=== PATIENT | male | born 1990 | race Caucasian/White ===

== ENCOUNTER 2017-07-08 16:23 | Emergency (ER) | payer OTHER ==
[~2017-07-08] VITALS: Ht 180.3 cm; Wt 70.3 kg
[2017-07-08] MEDS ORDERED: ACETAMINOPHEN-1 EAC1 PO (16:58)
[2017-07-08] MEDS ORDERED: AMOXICILLIN 50500 MG PO (16:58)
[2017-07-08] MEDS ORDERED: IBUPROFEN 800800 M1 PO (16:58)
[2017-07-08 17:20] VITALS: BP 106/72
== END 2017-07-08 17:20 | disposition home or self-care (01) ==
LOC: M.ERS 16:23
DX: K08.89 Other specified disorders of teeth and supporting structures (principal); J45.909 Unspecified asthma, uncomplicated; F31.9 Bipolar disorder, unspecified; F90.9 Attention-deficit hyperactivity disorder, unspecified type

== ENCOUNTER 2017-08-24 15:44 | Emergency (ER) | payer OTHER ==
[~2017-08-24] VITALS: Ht 182.9 cm; Wt 68.0 kg
[~2017-08-24 15:44] MED LIST: ACETAMINOPHEN-1 EAC1 PO; AMOXICILLIN 50500 MG PO; IBUPROFEN 800800 M1 PO
[2017-08-24 15:59] VITALS: BP 122/82
[2017-08-24 16:53] LABS: ABSOLUTE EOSINOPHILS 0.3 thou/uL (0.0-0.7); ABSOLUTE LYMPHOCYTES 2.3 thou/uL (0.8-5.3); ABSOLUTE MONOCYTES 0.7 thou/uL (0.0-1.2); ABSOLUTE NEUTROPHILS 7.8 thou/uL (1.6-8.1); BASOPHILS 0.4 %; EOSINOPHILS 2.5 %; HEMATOCRIT 42.8 % (42.0-52.0); HEMOGLOBIN 14.7 gm/dL (14.0-18.0); LYMPHOCYTES 20.5 %; MCH 31.1 pg (26.0-34.0); MCHC 34.5 g/dL (28.0-37.0); MCV 90.1 fL (80.0-100.0); MONOCYTES 6.4 %; MPV 7.5 fl. (7.2-11.1); NUCLEATED RBCS 0 /100WBC; PLATELET COUNT* 222 thou/uL (150-400); POLYS 70.2 %; RBC 4.75 mil/uL (4.50-6.00); WBC 11.1 thou/uL (4.0-11.0)
[2017-08-24 17:00] LABS: CALCIUM 9.4 mg/dL (8.5-10.1); CREATININE 0.9 mg/dL (0.6-1.3); POTASSIUM 3.9 mmol/L (3.5-5.1)
[2017-08-24 17:05] LABS: ALBUMIN 3.6 g/dL (3.4-5.0); TOTAL BILIRUBIN 0.3 mg/dL (<0.1-1.0); TOTAL PROTEIN 7.1 g/dL (6.4-8.2)
[2017-08-24 17:11] LABS: APTT 28.7 Seconds (25.0-31.3)
[2017-08-24] MEDS ORDERED: CLEOCIN HCL150 M1 PO (17:12)
[2017-08-24 18:03] VITALS: BP 123/69
[2017-08-24 18:11] LABS: ESR (SEDRATE) 20 mm/hr (0-15)
== END 2017-08-24 18:04 | disposition left against medical advice (07) ==
LOC: M.ERS 15:44 → M.TBA-ER 16:32 → M.ERS 18:04
PROVIDERS: Nurse Practitioner Family
DX: L03.114 Cellulitis of left upper limb (principal); J45.909 Unspecified asthma, uncomplicated; F90.9 Attention-deficit hyperactivity disorder, unspecified type; F31.9 Bipolar disorder, unspecified; F17.210 Nicotine dependence, cigarettes, uncomplicated

== ENCOUNTER 2018-01-16 18:26 | Emergency (ER) | payer OTHER ==
[~2018-01-16] VITALS: Ht 182.9 cm; Wt 63.5 kg
[~2018-01-16 18:26] MED LIST changes: +CLEOCIN HCL150 M1 PO
[2018-01-16] MEDS ORDERED: BACTRIM DS TAB1 EAC1 PO (19:49)
[2018-01-16 19:58] VITALS: BP 125/76
== END 2018-01-16 19:59 | disposition home or self-care (01) ==
LOC: M.ERS 18:26
DX: H60.01 Abscess of right external ear (principal); J45.909 Unspecified asthma, uncomplicated

== ENCOUNTER 2019-07-08 12:53 | Emergency (ER) | payer OTHER ==
[~2019-07-08] VITALS: Ht 180.3 cm; Wt 68.0 kg
[~2019-07-08 12:53] MED LIST changes: +BACTRIM DS TAB1 EAC1 PO
[2019-07-08 13:05] VITALS: BP 141/90
[2019-07-08] MEDS ORDERED: IBUPROFEN 800800 M1 PO (13:16)
[2019-07-08] MEDS ORDERED: PENICILLIN VK500 MG PO (13:16)
== END 2019-07-08 13:37 | disposition home or self-care (01) ==
LOC: M.ERS 12:53
DX: K04.7 Periapical abscess without sinus (principal); K02.9 Dental caries, unspecified; J45.909 Unspecified asthma, uncomplicated; F31.9 Bipolar disorder, unspecified; F90.9 Attention-deficit hyperactivity disorder, unspecified type; F17.200 Nicotine dependence, unspecified, uncomplicated